=== PATIENT | female | born 1995 | race Caucasian/White ===

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

== ENCOUNTER 2017-02-16 03:37 | Emergency (ER) | payer OTHER ==
[~2017-02-16] VITALS: Ht 167.6 cm; Wt 102.3 kg
[2017-02-16] MEDS ORDERED: AMOX1TAB61 PO (04:15)
--- NOTE | 2017-02-16 04:28 | PHYS DOC ---
General Chief Complaint: SORE THROAT Stated Complaint: SORE THROAT,BREATHING PROBLEMS, Time Seen by MD: 03:41 Source: patient Exam Limitations: no limitations Problems: History of Present Illness Initial Comments Patient is a 21-year-old female who comes to the ED with her significant other complaining of sore throat. Patient typically follows at [facility], she says that she was seen 4 days ago for the same symptoms and prescribed Augmentin. She's been taking Augmentin as prescribed but has noticed no relief. Her throat has swollen to the point where she feels that it is making her asthma symptoms worse. She denies fever chills or body aches no nausea or vomiting but does have painful swallowing and painful swollen lymph nodes. She denies history of mono. She also states she took test at home and feels like it was faintly positive. Timing/Duration: other Severity: severe Location: throat Prearrival Treatment: over the counter meds, prescription meds Modifying Factors: worse with antibiotics, worse with coughing Associated Symptoms: cough, poor solids intake, sore throat Allergies: Coded Allergies: No Known Drug Allergies (Unverified , 02/16/17) Past Medical History Medical History: no pertinent history Surgical History: noncontributory Social History Smoker: non-smoker Alcohol: none Drugs: none Constitutional: denies chills, denies diaphoresis (number), denies fever Ears: denies dizziness, denies tinnitus Nose: denies clots, denies congestion, denies epistaxis Throat: see HPI, pain, swelling, denies neck stiffness, hoarse, painful swallowing, denies difficulty with fluids Respiratory: cough, denies shortness of breath, denies wheezing Cardiovascular: denies chest pain, denies palpitations Gastrointestinal: denies abdominal pain, denies diarrhea, denies nausea, denies vomiting Musculoskeletal: denies back pain, denies joint swelling, denies neck pain Neurological: denies headache, denies numbness, denies paresthesia Physical Exam General Appearance: no apparent distress, obese Eyes: bilateral eye normal inspection, bilateral eye PERRL, bilateral eye EOMI Nose: normal inspection Mouth/Throat: pharynx swelling, pharynx tenderness (airway patent), tonsillar exudate, tonsillar swelling (2+) Neck: supple, trachea midline, lymphadenopathy (R), lymphadenopathy (L) Cardiovascular/Respiratory: normal peripheral pulses, normal breath sounds, no respiratory distress 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 [place] + I rechecked the patient she states that her throat swelling has decreased significantly and she is now much more comfortable. I discussed mononucleosis, throat swelling and airway patency, and risk of splenomegaly/splenic rupture. I discussed a prolonged period of rest, time off work, aggressive hydration, and [id number] plus prescription medications. Signs and symptoms to monitor as well as indications for urgent return to the department were discussed the patient questions were answered to her satisfaction she expressed agreement and understanding with the treatment plan. Departure Time of Disposition: 05:24 Disposition: HOME, SELF-CARE Diagnosis: infectious mononucleosis Condition: GOOD Patient Instructions: Infectious Mononucleosis Additional Instructions: Please review the patient education materials given by ED staff. [id number] Tylenol and ibuprofen as well as analgesic throat sprays as needed. Aggressive hydration with Gatorade and water. No exercise or strenuous activity until cleared by doctor. Prescription: Prednisone 20 mg twice daily for 5 days preserve her airway. Off work for the next week, further activity restriction modifications to be determined by your PCP. Follow-up with your doctor next week. Return to ED with new or changing symptoms.: FELIPE STAPLETON DO Feb 16, 2017 04:28
[2017-02-16] MEDS ORDERED: ONDANSETRON ODT 4 MG TAB.RAPDIS ONE (04:38)
[2017-02-16] MEDS ORDERED: LIDO:MAALOX 1:1 20 ML SINGLE DOSE PO ONE (04:45)
[2017-02-16] MEDS ORDERED: ONDANSETRON ODT 4 MG TAB.RAPDIS PO ONE ×2 (05:00→05:30)
[2017-02-16] MEDS ORDERED: methylPREDNISolone SOD SUCC PF 125 MG/2 ML VIAL. IM ONE (05:00)
[2017-02-16] MEDS ORDERED: methylPREDNISolone SOD SUCC PF 125 MG/2 ML VIAL. IV ONE (05:00)
[2017-02-16 05:12] LABS: MONONUCLEOSIS PATIENT POSITIVE (NEGATIVE)
[2017-02-16] MEDS ORDERED: PRED20TA PO (05:24)
[2017-02-16 05:30] VITALS: BP 129/84
== END 2017-02-16 05:30 | disposition home or self-care (01) ==
LOC: ER 03:37
DX: B27.90 Infectious mononucleosis, unspecified without complication (principal); J45.909 Unspecified asthma, uncomplicated
CPT/HCPCS: 81025; 86308; 87070; 87880; 96374; 99284; J2930; Q0162

== ENCOUNTER 2017-06-22 16:24 | Emergency (ER) | payer OTHER ==
[~2017-06-22] VITALS: Ht 167.6 cm; Wt 102.3 kg
[~2017-06-22 16:24] MED LIST: AMOX1TAB61 PO; PRED20TA PO
[2017-06-22 16:30] VITALS: BP 135/74
--- NOTE | 2017-06-22 17:07 | PHYS DOC ---
Past History Past Medical History: Asthma Past Surgical History: No Surgical History Alcohol Use: None Drug Use: None Adult General Chief Complaint Chief Complaint: ABDOMINAL PAIN IN HPI HPI 21-year-old female patient with LMP of May 08 at 6.5 weeks of gestation complaining of right lower quadrant and pelvic cramping pain for the last 2 days as a mild pain without vaginal bleeding. Patient rated her pain 4/10 and states she took Tylenol with partial improvement of her pain. Patient had blood test by her PHOTOGRAPH DEVELOPER doctor 6 days ago with the HCG level of 28,000. She denies fever and chills, vomiting, diarrhea and constipation, urinary symptom. Patient complaining of moderate vaginal bleeding and nausea. Review of Systems Review of Systems Constitutional: Denies fever or chills [] Eyes: Denies change in visual acuity, redness, or eye pain [] HENT: Denies nasal congestion or sore throat [] Respiratory: Denies cough or shortness of breath [] Cardiovascular: No additional information not addressed in HPI [] GI: Reports abdominal pain Rt. quadrant, lower, nausea,. Pt denies vomiting, bloody stools or diarrhea [] : Denies dysuria or hematuria [] Musculoskeletal: Denies back pain or joint pain [] Integument: Denies rash or skin lesions [] Neurologic: Denies headache, focal weakness or sensory changes [] Endocrine: Denies polyuria or polydipsia [] All other systems were reviewed and found to be within normal limits, except as documented in this note. Family History Family History Non-contributory Current Medications Current Medications Meds as per nursing Allergies Allergies Allergies Coded Allergies Type Severity Reaction Last Updated Verified No Known Drug Allergies 02/16/17 No Physical Exam Physical Exam Constitutional: Well developed, well nourished, no acute distress, non-toxic appearance. [] HENT: Normocephalic, atraumatic Eyes: PERRLA, EOMI, conjunctiva normal, no discharge. [] Neck: Normal range of motion, no tenderness, supple, no stridor. [] Cardiovascular:Heart rate regular rhythm, no murmur [] Lungs & Thorax: Bilateral breath sounds clear to auscultation [] Abdomen: Bowel sounds normal, soft, Rt. lower quadrant tenderness, no masses, no pulsatile masses. [] Skin: Warm, dry, no erythema, no rash. [] Back: No tenderness, no CVA tenderness. [] Extremities: No tenderness, no cyanosis, no clubbing, ROM intact, no edema. [] No psoas. Neurologic: Alert and oriented X 3, normal motor function, normal sensory function, no focal deficits noted. [] Psychologic: Affect anxious, judgement normal, mood normal. [] Current Patient Data Lab Results Laboratory Tests Test 06/22/17 15:49 POC Urine HCG, Qualitative hcg positive (Negative) EKG EKG [] Radiology/Procedures Radiology/Procedures US- IUP, with FHR, EDC- 02-10-18. Corpus Lut. Cyst on Rt.[] [place] [address] IMAGING REPORT Signed PATIENT: REDD OLIVER ACCOUNT: [id number] : 1995 LOCATION: ER AGE: 21 SEX: F EXAM STATUS: REG ER ORD. PHYSICIAN: REGINA FRANCIS MD REASON: right lower quadrant pain PROCEDURE: OB <14 WKS Obstetric pelvic ultrasound June 22, 2017 INDICATION: Right lower quadrant pain. COMPARISON: None available. TECHNIQUE: Transabdominal sonographic evaluation of the pelvis was performed utilizing grayscale, color Doppler and spectral waveform analysis. FINDINGS: The uterus measures 9.7 x 6.1 x 5.6 cm. There is a circumscribed gestational sac within the uterine fundus with sac size measuring 1.6 cm compatible with a gestational age of 6 weeks 3 days. pole is visualized. [place]-rump length measures 1.8 cm compatible with a gestational age of 6 weeks and 4 days. heart tones are visualized measuring 141 bpm. The right ovary measures 3.4 x 2.8 x 2.7 cm. There is a cyst measuring 2.1 x 2.3 x 1.5 cm containing internal echoes suggestive of a corpus luteum. Arterial and venous waveform identified at the time of imaging. The left ovary is not visualized. There is no significant free fluid. Urinary bladder is normal as visualized. IMPRESSION: 1. Single intrauterine gestation is identified with heart tones measuring 145 bpm and measurements compatible with a gestational age of 6 weeks 5 days. Sonographic EDC is 02/10/2018. 2. Right ovary contains a suspected corpus luteal cyst measuring 2.3 cm. Perfusion is noted at the time of imaging. 3. Left ovary is not visualized. Electronically signed by: Trista Robles MD (06/22/2017 6:32 PM) [facility] DICTATED AND SIGNED BY: TRISTA ROBLES MD Course & Med Decision Making Course & Med Decision Making Pertinent Labs and Imaging studies pending. Patient care transferred to Dr. Bridges At 1800 Pt. O + per her hx and declined to wait for labs. Pt. to take Tylenol for pain. Push fluids. Take daily vitamin. Follow up with primary and PHOTOGRAPH DEVELOPER. Return if any concerns. Impression: 1. Abdomen Pain- Gravid 2. IUP with FHR, EDC 02-10-18 3. Rt. Corpus Luteum Cyst 4. Leukocytosis of 5. B-HCG= 48,333 Dragon Disclaimer Dragon Disclaimer This electronic medical record was generated, in whole or in part, using a voice recognition dictation system. Departure Departure: Impression: Primary Impression: Abdominal pain in Disposition: 01 HOME, SELF-CARE Condition: STABLE Referrals: JOSE MANUEL JACOBSON MD (PCP) Patient Instructions: Abdominal Pain During Additional Instructions: Drink plenty of liquids Follow-up with your primary care physician in 3-5 days Return to ER if not getting better REGINA FRANCIS MD Jun 22, 2017 17:07 LOUISA BRIDGES MD Jun 22, 2017 18:45
[2017-06-22 17:35] LABS: BASO % 0 % (0-3); EOS # 0.1 x10^3/uL (0.0-0.7); EOS % 1 % (0-3); HEMATOCRIT 41.3 % (36.0-47.0); HEMOGLOBIN 14.2 g/dL (12.0-15.5); LYMPH # 2.7 x10^3/uL (1.0-4.8); LYMPH % 21 % (24-48); MEAN CORPUSCULAR HEMOGLOBIN 30 pg (25-35); MEAN CORPUSCULAR HGB CONC 34 g/dL (31-37); MEAN CORPUSCULAR VOLUME 86 fL (79-100); MONO # 1.1 x10^3/uL (0.0-1.1); MONO % 8 % (0-9); NEUT # 9.1 x10^3uL (1.8-7.7); NEUT % 70 % (31-73); PLATELET COUNT 271 x10^3/uL (140-400); RED BLOOD COUNT 4.78 x10^6/uL (3.50-5.40); WHITE BLOOD COUNT 13.1 x10^3/uL (4.0-11.0)
[2017-06-22 17:55] LABS: BACTERIA,URINE 0 /HPF (0-FEW); BILIRUBIN,URINE NEG (NEG); CLARITY,URINE CLEAR; COLOR,URINE YELLOW; GLUCOSE,URINE NEG (NEG); NITRITE,URINE NEG (NEG); RBC,URINE 0 /HPF (0-2); SQUAMOUS EPITHELIAL CELL,UR OCC /LPF; UROBILINOGEN,URINE 0.2 mg/dL (0.2 mg/dL); WBC,URINE 0 /HPF (0-4)
--- NOTE | 2017-06-22 18:35 | RAD ---
Obstetric pelvic ultrasound June 22, 2017 INDICATION: Right lower quadrant pain. COMPARISON: None available. TECHNIQUE: Transabdominal sonographic evaluation of the pelvis was performed utilizing grayscale, color Doppler and spectral waveform analysis. FINDINGS: The uterus measures 9.7 x 6.1 x 5.6 cm. There is a circumscribed gestational sac within the uterine fundus with sac size measuring 1.6 cm compatible with a gestational age of 6 weeks 3 days. pole is visualized. [place]-rump length measures 1.8 cm compatible with a gestational age of 6 weeks and 4 days. heart tones are visualized measuring 141 bpm. The right ovary measures 3.4 x 2.8 x 2.7 cm. There is a cyst measuring 2.1 x 2.3 x 1.5 cm containing internal echoes suggestive of a corpus luteum. Arterial and venous waveform identified at the time of imaging. The left ovary is not visualized. There is no significant free fluid. Urinary bladder is normal as visualized. IMPRESSION: 1. Single intrauterine gestation is identified with heart tones measuring 145 bpm and measurements compatible with a gestational age of 6 weeks 5 days. Sonographic EDC is 02/10/2018. 2. Right ovary contains a suspected corpus luteal cyst measuring 2.3 cm. Perfusion is noted at the time of imaging. 3. Left ovary is not visualized. Electronically signed by: Natali Hardin MD (06/22/2017 6:32 PM) [facility]
== END 2017-06-22 19:00 | disposition home or self-care (01) ==
LOC: ER 16:24
DX: O26.891 Other specified pregnancy related conditions, first trimester (principal); R10.2 Pelvic and perineal pain; O99.511 Diseases of the respiratory system complicating pregnancy, first trimester; D72.829 Elevated white blood cell count, unspecified; N83.11 Corpus luteum cyst of right ovary; J45.909 Unspecified asthma, uncomplicated; Z3A.01 Less than 8 weeks gestation of pregnancy
CPT/HCPCS: 36415; 76801; 81001; 81025; 84702; 85025; 99285-25